=== PATIENT | female | born 1965 | race Caucasian/White ===

== ENCOUNTER 2017-07-21 18:00 | Emergency (ER) | payer OTHER ==
[~2017-07-21] VITALS: Ht 165.1 cm; Wt 55.5 kg
[~2017-07-21 18:00] MED LIST: ADVA250A INH; AMLO5 PO; ATELTAB PO; AZIT250T3 PO; BETH25TA2 PO; CARA1TAB6 PO; DEXI60CA PO; DIAZ2TAB PO; DICY10CA12 PO; DIPH2.5T14 PO; GABA300C5 PO; HYDR200T3 PO; LEFL1TAB3 PO; OXYC30TA PO; PERC5TAB12 PO; PROM12.54 PO; RANI1TAB5 PO; SERT-132 PO; SIMV20TA PO; SPIRCAP INH; SULF500T3 PO; VENTAER INH; VENTAER2 INH
[2017-07-21 18:06] VITALS: BP 108/66; PULSE 81; RESP 16; TEMP 98.2; O2SAT 95
--- NOTE | 2017-07-21 19:18 | PD ---
HPI Chief Complaint: Seizure Time Seen by Provider: 19:07 Travel History International Travel<30 days: No Contact w/Intl Traveler<30days: No Traveled to known affect area: No History of Present Illness HPI 52-year-old female patient with history of fibromyalgia, seizures currently on gabapentin, presents to the ER today because she states that she had fell hitting her nose, right knee, and is complaining of left foot pain. She has a boot on and states that she had previous fractures in her left foot but states that she thinks she injured something else in the lateral foot. She is on several pain medications and is fairly somnolent in the ER. She denies other issues. Modifying Factors: None Associated Signs & Symptoms: Right knee, left foot, nose injury after seizure yesterday Risk Factors: seizure PFSH Past Medical History Anemia: Yes Arthritis: Yes (R.A.) Asthma: Yes Blood Disorders: No Anxiety: Yes Depression: Yes Heart Rhythm Problems: No Cancer: Yes Cardiac Catheterization: Yes (NO INTERVENTION) Cardiovascular Problems: Yes (CAD, ) High Cholesterol: Yes Chemotherapy: No Chest Pain: Yes Congestive Heart Failure: No COPD: Yes Cerebrovascular Accident: Yes Coronary Artery Disease: Yes Diabetes: No Diminished Hearing: No Endocrine: No Fibromyalgia: Yes Gastrointestinal Disorders: Yes (GASTRITIS) GERD: Yes Genitourinary: No Headaches: Yes Hepatitis: No Hiatal Hernia: No Herniated Disk: Yes (CERVICAL, THORACIC, LUMBAR) Hypertension: Yes Immune Disorder: No Implanted Vascular Access Dvce: No Musculoskeletal: Yes (RT KNEE) Neurologic: Yes (CVA) Psychiatric: Yes Reproductive: No Respiratory: Yes Immunizations Current: Yes Myocardial Infarction: Yes (2007) Pneumonia: Yes Radiation Therapy: No Seizures: Yes Sleep Apnea: No Thyroid Disease: No Ulcer: Yes PNEUMOCCOCAL Vaccine (Year): 1 ?: Not Menopausal: Yes : 3 Para: 2 : 1 Dilation and Curettage (D&C): Yes Past Surgical History Abdominal Surgery: Yes (HYSTERECTOMY) Cardiac Surgery: Yes (CARDIAC CATHETERIZATION X1.) Coronary Artery Bypass Graft: Yes (11/03) Ear Surgery: No Endocrine Surgery: No Eye Surgery: No Genitourinary Surgery: No Gynecologic Surgery: Yes Hysterectomy: Yes Neurologic Surgery: No Oral Surgery: Yes (TONSILLECTOMY) Pacemaker: No Tonsillectomy: Yes Other Surgery: Yes (LEFT WRIST - CARPAL TUNNEL SURGERY "SOMETIME LAST WEEK".) Social History Alcohol Use: Yes (occasional ) Tobacco Use: Yes Substance Use: Yes (MINOO) Allergies-Medications (Allergen,Severity, Reaction): Coded Allergies: animal dander (Unverified Allergy, Severe, AGGARAVATES COPD & ASTHMA, 07/21) diatrizoate meglumine (Unverified Allergy, Severe, Hives, 07/21/17) gadobenic acid (Unverified Allergy, Severe, Hives, 07/21/17) gadodiamide (Unverified Allergy, Severe, Hives, 07/21/17) gadoteridol (Unverified Allergy, Severe, Hives, 07/21/17) ibuprofen (Unverified Allergy, Severe, RASH, HIVES, VOMITING, 07/21/17) iodixanol (Unverified Allergy, Severe, Hives, 07/21/17) iohexol (Unverified Allergy, Severe, Hives, 07/21/17) adhesive (Unverified Allergy, Mild, RASH, 07/21/17) *MDRO Multi-Drug Resistant Organism (Verified Adverse Reaction, Unknown, ) 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) Reported Meds & Prescriptions Reported Meds & Active Scripts Active Norvasc (Amlodipine Besylate) 5 Mg Tab 2.5 Mg PO DAILY 30 Days Percocet (Oxycodone-Acetaminophen) 5-325 mg Tab 1 Tab PO Q6H PRN Reported Sertraline (Sertraline HCl) 50 Mg Tab 50 Mg PO DAILY Oxycodone (Oxycodone HCl) 30 Mg Tab 30 Mg PO Q8H PRN Diazepam 2 Mg Tab 10 Mg PO HS PRN Ventolin Hfa 18 GM Inh (Albuterol Sulfate) 90 Mcg/Act Aer 2 Puff INH Q4H PRN Spiriva Handihaler (Tiotropium Inh) 18 Mcg Cap 18 Mcg INH DAILY 1 capsule = 18 mcg Advair Diskus Inh (Fluticasone-Salmeterol Inh) 250-50 Mcg/Blist Aer 1 Puff INH BID Rinse mouth after use. Atelvia (Risedronate) 35 Mg Tabdr 35 Mg PO Q7D Simvastatin 20 Mg Tab 20 Mg PO DAILY Gabapentin 300 Mg Cap 300 Mg PO QID Sulfasalazine 500 Mg Tab 500 Mg PO BID Hydroxychloroquine (Hydroxychloroquine Sulfate) 200 Mg Tab 200 Mg PO BID Takw with food Leflunomide 20 Mg Tab 20 Mg PO DAILY Carafate (Sucralfate) 1 Gm Tab 1 Gm PO TID On empty stomach Bethanechol 25 Mg Tab 25 Mg PO QID Diphenoxylate-Atropine 2.5-0.025 Mg Tab 1 Tab PO Q6H PRN Ranitidine 75 (Ranitidine HCl) 75 Mg Tab 150 Mg PO BID Take 30 to 60 minutes before eating food or drinking beverages that cause heartburn. Promethazine (Promethazine HCl) 12.5 Mg Tab 25 Mg PO Q8HR PRN Dicyclomine (Dicyclomine HCl) 10 Mg Cap 10 Mg PO TID PRN Review of Systems Except as stated in HPI: all other systems reviewed are Neg Physical Exam Narrative GENERAL: Well-developed middle-aged female patient who is not in acute distress. She is awake but fairly somnolent and arousable in the ER. SKIN: Focused skin assessment warm/dry. HEAD: Atraumatic. Normocephalic. Mildly tender to palpation of the nasal bridge with no obvious deformities identified. EYES: Pupils equal and round. No scleral icterus. No injection or drainage. ENT: No nasal bleeding or discharge. Mucous membranes pink and moist. NECK: Trachea midline. No JVD. CARDIOVASCULAR: Regular rate and rhythm. No murmur appreciated. RESPIRATORY: No accessory muscle use. Clear to auscultation. Breath sounds equal bilaterally. GASTROINTESTINAL: Abdomen soft, non-tender, nondistended. Hepatic and splenic margins not palpable. EXTREMITIES: No clubbing, cyanosis, or edema. No joint tenderness, effusion, or edema noted. There is tenderness on palpation of the left lateral foot with notable ecchymosis. Abrasions over the right knee with nontender range of motion. MUSCULOSKELETAL: No obvious deformities. No clubbing. No cyanosis. No edema. NEUROLOGICAL: Awake and alert. No obvious cranial nerve deficits. Motor grossly within normal limits. Normal speech. PSYCHIATRIC: Appropriate mood and affect; insight and judgment normal. Data Data Last Documented VS Vital Signs Date Time Temp Pulse Resp B/P (MAP) Pulse Ox O2 Delivery O2 Flow Rate FiO2 07/21/17 19:57 87 16 109/62 (78) 99 Room Air 07/21/17 18:06 98.2 Orders Orders Complete Blood Count With Diff (07/21/17 19:07) Basic Metabolic Panel (Bmp) (07/21/17 19:07) Ct Brain W/O Iv Contrast(Rout) (07/21/17 19:07) Ct Facial Bones W/O Iv Cont (07/21/17 19:07) Foot, Complete ([id number]) (07/21/17 19:07) Knee, Complete (4vws) (07/21/17 19:07) Ed Discharge Order (07/21/17 20:16) [facility] Medical Decision Making Medical Screen Exam Complete: Yes Emergency Medical Condition: Yes Medical Record Reviewed: Yes Interpretation(s) Last [address] 07/21/171906 Signed Impressions: Service Date/Time: Friday, July 21, 2017 19:27 - CONCLUSION: 1. No acute facial fractures. 2. Mild left maxillary sinus mucosal disease. Kana Em MD Knee X-Ray 07/21/171906 Signed Impressions: Service Date/Time: Friday, July 21, 2017 19:15 - CONCLUSION: 1. No acute fracture or dislocation. Kana Em MD Head CT 07/21/171906 Signed Impressions: Service Date/Time: Friday, July 21, 2017 19:27 - CONCLUSION: 1. No acute intracranial abnormality. Kana Em MD Foot X-Ray 07/21/171906 Signed Impressions: Service Date/Time: Friday, July 21, 2017 19:15 - CONCLUSION: 1. Subtle lucency at the base of the fifth metatarsal seen only on oblique view which may reflect a subtle nondisplaced fracture. Kana Em MD Differential Diagnosis Foot contusions versus fractures versus knee contusion versus fracture versus nasal bone fracture versus contusions Narrative Course Patient refused any lab work done. It appears that she may have had a breakthrough seizure. Patient is fairly unconcerned with her seizure. I will have her follow-up with her primary care physician regarding that issue. CAT scan of the brain and facial bones not show any signs of acute injuries. X- rays of the knee and foot did show that she may have a nondisplaced fracture at the left fifth metatarsal. She already has a hard lunar boot and I would keep her in this. We will give her crutches and have her stay off of the left foot. We will have her follow-up with podiatry regarding that issue. Return for any new issues or injuries as needed. The plan has been discussed with her and she states understanding. Diagnosis Primary Impression: Seizure Additional Impression: Fracture of fifth metatarsal bone Disposition: 01 DISCHARGE HOME Condition: Stable Iman Kaminski MD Jul 21, 2017 19:18
--- NOTE | 2017-07-21 19:52 | RADRPT ---
EXAM DATE/TIME: 07/21/2017 19:27 [facility] COMPARISON: CT BRAIN W/O CONTRAST, March 05, 2016, 18:19. INDICATIONS : Seizure yesterday, hit left side of head. Cephalgia. RADIATION DOSE: 57.97 CTDIvol (mGy) MEDICAL HISTORY : Seizures. Stroke Hypertension. SURGICAL HISTORY : Tonsillectomy. Hysterectomy. ENCOUNTER: Initial ACUITY: 1 day PAIN SCALE: 4/10 LOCATION: Left parietal TECHNIQUE: Multiple contiguous axial images were obtained of the head. Using automated exposure control and adj ustment of the mA and/or kV according to patient size, radiation dose was kept as low as reasonably a chievable to obtain optimal diagnostic quality images. DICOM format image data is available electro nically for review and comparison. FINDINGS: CEREBRUM: Mild diffuse cerebral volume loss. The ventricles are normal for age. No evidence of midline shift, mass lesion, hemorrhage or acute infarction. No extra-axial fluid collections are seen. POSTERIOR FOSSA: The cerebellum and brainstem are intact. The 4th ventricle is midline. The cerebellopontine angle i s unremarkable. EXTRACRANIAL: The visualized portion of the orbits is intact. SKULL: The calvaria is intact. No evidence of skull fracture. CONCLUSION: 1. No acute intracranial abnormality. Kana Em MD on July 21, 2017 at 19:50 Board Certified Radiologist. This report was verified electronically.
[2017-07-21 19:57] VITALS: BP 109/62; PULSE 87; RESP 16; O2SAT 99
--- NOTE | 2017-07-21 20:07 | RADRPT ---
EXAM DATE/TIME: 07/21/2017 19:15 [facility] COMPARISON: No previous studies available for comparison. INDICATIONS : Left lateral foot pain post seizure. MEDICAL HISTORY : Seizures. Stroke Hypertension, Previous left foot fracture SURGICAL HISTORY : Tonsillectomy. Hysterectomy. ENCOUNTER: Initial ACUITY: 2 days PAIN SCORE: 7/10 LOCATION: Left foot FINDINGS: There is subtle lucency at the base of the fifth metatarsal only seen on the oblique view. Osseous st ructures otherwise intact. Joint spaces are maintained. No significant soft tissue edema. CONCLUSION: 1. Subtle lucency at the base of the fifth metatarsal seen only on oblique view which may reflect a s ubtle nondisplaced fracture. Kana Em MD on July 21, 2017 at 20:04 Board Certified Radiologist. This report was verified electronically.
--- NOTE | 2017-07-21 20:08 | RADRPT ---
EXAM DATE/TIME: 07/21/2017 19:15 [facility] COMPARISON: KNEE RIGHT COMPLETE (4VWS), May 17, 2014, 18:00. INDICATIONS : Right patella pain with abrasion post seizure. MEDICAL HISTORY : Seizures. Stroke Hypertension, Previous left foot fracture SURGICAL HISTORY : Tonsillectomy. Hysterectomy. ENCOUNTER: Initial ACUITY: 2 days PAIN SCORE: 7/10 LOCATION: Right knee FINDINGS: Four view examination of the right knee demonstrates no evidence of fracture or dislocation. Bony mi neralization is normal. The articular surfaces are intact. Minimal degenerative osteoarthritis simil ar to prior exam. The suprapatellar soft tissues have a normal configuration. CONCLUSION: 1. No acute fracture or dislocation. Kana Em MD on July 21, 2017 at 20:05 Board Certified Radiologist. This report was verified electronically.
--- NOTE | 2017-07-21 20:10 | RADRPT ---
EXAM DATE/TIME: 07/21/2017 19:27 [facility] COMPARISON: No previous studies available for comparison. INDICATIONS : Trauma; seizure yesterday, hit face on furniture, pain to left periorbital area. RADIATION DOSE: 29.99 CTDIvol (mGy) MEDICAL HISTORY : Seizures. Stroke Hypertension. SURGICAL HISTORY : Tonsillectomy. Hysterectomy. ENCOUNTER: Initial ACUITY: 1 day PAIN SCORE: 6/10 LOCATION: Left facial TECHNIQUE: Volumetric scanning of the facial bones was performed. Using automated exposure control and adjustme nt of the mA and/or kV according to patient size, radiation dose was kept as low as reasonably achiev able to obtain optimal diagnostic quality images. DICOM format image data is available electronicall y for review and comparison. FINDINGS: ORBITS: The orbital and infraorbital osseous structures are intact. The retroconal structures have a normal configuration. No radiopaque foreign bodies are seen. NASAL BONE: The nasal bone and maxillary spine are intact ZYGOMATIC ARCHES: Symmetric without evidence of fracture. SINUSES: The maxillary, ethmoid and frontal sinuses are intact. Small mucous retention cyst in the inferior le ft maxillary sinus. No air-fluid levels seen. NASAL CAVITY: The nasal septum is intact and midline. The lacrimal ducts are intact. SOFT TISSUES: No radiopaque foreign bodies seen. No soft-tissue swelling is seen. INTRACRANIAL: No intracranial air seen. CRIBIFORM PLATE: Grossly intact. CONCLUSION: 1. No acute facial fractures. 2. Mild left maxillary sinus mucosal disease. Kana Em MD on July 21, 2017 at 20:06 Board Certified Radiologist. This report was verified electronically.
[2017-07-21 20:30] VITALS: BP 114/68; PULSE 74; RESP 16; O2SAT 100
== END 2017-07-21 21:09 | disposition home or self-care (01) ==
LOC: PHED 18:00
DX: R56.9 Unspecified convulsions (principal); S92.355A Nondisplaced fracture of fifth metatarsal bone, left foot, initial encounter for closed fracture; S80.211A Abrasion, right knee, initial encounter; S09.92XA Unspecified injury of nose, initial encounter; W19.XXXA Unspecified fall, initial encounter; I10 Essential (primary) hypertension; I25.10 Atherosclerotic heart disease of native coronary artery without angina pectoris; F12.90 Cannabis use, unspecified, uncomplicated; Z72.0 Tobacco use
CPT/HCPCS: 70450; 70486; 73564; 73630; 99284; E0113